=== PATIENT | male | born 1975 | race Caucasian/White ===

== ENCOUNTER 2025-03-19 13:20 | Emergency (ER) | payer MEDICAID, SELFPAY ==
[2025-03-19 13:23] VITALS: BP 105/73; PULSE 61; RESP 18; TEMP 36.6; O2SAT 95; BMI 26.6
--- NOTE | 2025-03-19 14:12 | ED.PSYCH ---
HPI - Psych General Chief Complaint: Psychiatric Problem/Disorder Stated Complaint: allergic reaction to medication Time Seen by Provider: 03/19/25 13:34 History of Present Illness HPI Narrative: This 49-year-old male comes in stating that he is having worsening insomnia with depression and anxiety symptoms. He states that he has been taking his regular medicines but did take Ambien 2 nights ago and states that he does not remember much what happened for about 18 hours after this. He has taken Ambien in the past. He states that he also has taken some herbal treatments that he suspects may have caused some of these symptoms. He states that he does feel like his depression and anxiety symptoms worsened and reports that last night he was thinking that he just wanted to end his life. He specifies that he would have taken all the pills he could to try to do so. He does state that he feels a bit unsafe and that regard. He denies using any street drugs or alcohol. Related Data Home Medications ?Medication ?Instructions ?Recorded ?Confirmed buprenorphine 300 mg/1.5 mL 300 mg subcut Q30D 03/19/25 03/19/25 solution,exten.rel.subcutaneous syringe (Sublocade) dextromethorphan IR 45 1 tab PO BID 03/19/25 03/19/25 mg-bupropion ER 105 mg biphasic tablet (Auvelity) gabapentin 800 mg tablet 400 mg PO TID 03/19/25 03/19/25 levothyroxine 100 mcg tablet 100 mcg PO DAILY 03/19/25 03/19/25 (Levo-T) propranolol 120 mg capsule,24 120 mg PO BID 03/19/25 03/19/25 hr,extended release (Inderal LA) quetiapine 100 mg tablet (Seroquel) 100 mg PO QHS 03/19/25 03/19/25 vilazodone 40 mg tablet (Viibryd) 40 mg PO DAILY 03/19/25 03/19/25 Previous Rx's ?Medication ?Instructions ?Recorded lorazepam 0.5 mg tablet (Ativan) 0.5 mg PO BID PRN #10 tabs 03/19/25 Allergies Allergy/AdvReac Type Severity Reaction Status Date / Time No Known Drug Allergies Allergy Verified 03/19/25 13:28 Review of Systems Status of ROS: Reports: 10 or more systems reviewed and unremarkable except as noted in History and below Narrative: Constitutional: No fevers, no weight gain or loss. Eyes: No discharge. No vision changes. HENT: No congestion, no sore throat, no ear pain. Cardiovascular: No chest pain, no palpitations. Respiratory: No shortness of breath, no wheezes, no cough. Gastrointestinal: No abdominal pain, no vomiting, no diarrhea. Genitourinary: No dysuria, no hematuria. Musculoskeletal: Normal range of motion. Skin: No rashes, no pruritis. Neurological: No dizziness, weakness, sensory change, speech change. Endo/Heme/Allergies: No bruising or bleeding. No polydipsia. Pysch: He reports increased anxiety and depression symptoms with insomnia. He admits to some suicidal thoughts. All other systems reviewed and are negative. PFSH PFS Social History Smoking Status: Former smoker Second hand tobacco smoke exposure: No How often do you have a drink containing alcohol: never AUDIT-C Alcohol total score: 0 Non-prescribed substance use: denies use service: No Exam Narrative: Exam Narrative: Constitutional: Well-developed, well-nourished, no acute distress. HEENT: Normocephalic, atraumatic. Neck: Normal range of motion. Nontender. Supple. Heart: Regular. No murmurs. Normal rate. Intact distal pulses. Lungs: Clear to auscultation. No chest discomfort. No wheezes, rhonchi, or rales. Abdomen: Normal bowel sounds. Nontender. No rebound tenderness. Genitalia: Deferred. Back: No midline tenderness. Normal range of motion. Extremities: Normal range of motion. No injury. Skin: Intact. No rash. Warm. No erythema or pallor. Neurologic: No altered sensation. No weakness. Alert and oriented. Psychiatric: No suicidality. No anxiety or depression. No insomnia. Nursing notes and vitals signs are reviewed. Const: Vital Signs, click to edit/add: Vital Signs - 24 hr 03/19/25 13:23 Temperature 97.8 F Pulse Rate [Pulse Oximeter] 61 Respiratory Rate 18 Blood Pressure [Ri ght Upper Arm] 105/73 Pulse Oximetry 95 Oxygen Delivery Me thod Room Air Course Vital Signs Vital signs: Initial Vital Signs Temperature 97.8 F 03/19/25 13:23 Temperature Source Temporal Artery Scan 03/19/25 13:23 Pulse Rate 61 03/19/25 13:23 Respiratory Rate 18 05/08/25 13:23 Blood Pressure 105/73 03/19/25 13:23 Blood Pressure Mean 83 03/19/25 13:23 Blood Pressure Position Sitting 03/19/25 13:23 Pulse Oximetry 95 03/19/25 13:23 Oxygen Delivery Method Room Air 03/19/25 13:23 Vital Signs Temperature 97.8 F 03/19/25 13:23 Pulse Rate 61 03/19/25 13:23 Respiratory Rate 18 03/19/25 13:23 Blood Pressure 105/73 03/19/25 13:23 Pulse Oximetry 95 03/19/25 13:23 Oxygen Delivery Method Room Air 03/19/25 13:23 Temperature 97.8 F 03/19/25 13:23 Pulse Rate 61 03/19/25 13:23 Respiratory Rate 18 03/19/25 13:23 Blood Pressure 105/73 03/19/25 13:23 Pulse Oximetry 95 03/19/25 13:23 Oxygen Delivery Method Room Air 03/19/25 13:23 MDM - Psych MDM Narrative Medical decision making narrative: This 49-year-old male comes in reporting increased symptoms of anxiety and insomnia recently. He states that he is continuing to take his prescribed medicines but also has taken some unregulated herbal type medicines that likely have cause some interaction. He states that he did have some thoughts of ending his life but he has never acted on such. I did [facility] and spoke with Levy from [facility]. it seems reasonable to discharge this patient. I did state that he could increase his Seroquel to 100 mg from 50 mg. He is agreeable to this plan. I did also provide a prescription for a few tablets of Ativan. He understands that this is not an ongoing plan and that we will not refill this medicine out of the emergency department. I advised him to follow-up with his primary physician which he states he is planning to do. Discharge Plan Discharge Clinical Impression: Depression, Acute anxiety Patient Disposition: Home, Self-Care Condition: Stable Additional Instructions: Okay to increase Seroquel from 50-100 mg at bedtime. It is best to avoid herbal treatments as these will interact with medications. Take Ativan as needed and directed for anxiety symptoms. Follow up with primary physician for ongoing assessment and management. Prescriptions: New lorazepam [Ativan] 0.5 mg tablet 0.5 mg PO BID PRNQty: 10 0RF No Action vilazodone [Viibryd] 40 mg tablet 40 mg PO DAILY Rx Instructions: must administer with a meal/food Auvelity 45-105 mg tablet, IR and ER, biphasic 1 tab PO BID Rx Instructions: administer at least 8 hours apart quetiapine [Seroquel] 100 mg tablet 100 mg PO QHS gabapentin 800 mg tablet 400 mg PO TID propranolol [Inderal LA] 120 mg capsule,extended release 24 hr 120 mg PO BID levothyroxine [Levo-T] 100 mcg tablet 100 mcg PO DAILY Sublocade 300 mg/1.5 mL solution, extended rel syringe 300 mg subcut Q30D Follow Up/Referrals: Pascale Felipe, AKIRA [Primary Care Provider] - Stand Alone Forms: [facility] Info Instructions
--- OUTSIDE RECORDS SUMMARY | 2025-03-19 20:41 | XMS_ITS | Clinical Summary ---
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 Active QUEtiapine XR (SEROquel XR) 50 MG 24 hour tablet Take 50 mg by mouth at bedtime. Do not crush or break. Active gabapentin (Neurontin) 600 MG tablet Take 600 mg by mouth three times a day. Active Dextromethorphan -buPROPion ER (Auvelity) 45-105 MG Tablet Extended Release Take by mouth 2 (two) times a day. Active Active Problems No known active problems Social History Tobacco Use Types Packs/Day Years Used Date Smoking Tobacco: Never Assessed EH IP Custom IPV Answer Date Recorded Do you feel UNSAFE in any of your personal relationships with your family members or any other acquaintances? No 2023 Sex and Gender Information Value Date Recorded Sex Assigned at Not on file Legal Sex Male 2:13 AM CDT Gender Identity Not on file Sexual Orientation Not on file Last Filed Vital Signs Vital Sign Reading Time Taken Comments Blood Pressure 106/82 07/10/2024 6:30 AM CDT Pulse 50 07/10/2024 6:30 AM CDT Temperature 36.4 C (97.5 F) 07/10/2024 5:35 AM CDT Respiratory Rate 14 07/10/2024 2:20 AM CDT Oxygen Saturation 97% 07/10/2024 6:30 AM CDT Inhaled Oxygen Concentration - - Weight - - Height - - Body Mass Index - - Plan of Treatment Health Maintenance Due Date Last Done Comments CT Colonography 1975 Cologuard 1975 Colonoscopy 1975 Colorectal Cancer Screening 1975 FIT/FOBT 1975 Sigmoidoscopy 1975 Hepatitis B Vaccine (Standin g Order) (1 of 3 - 19+ 3-dose series) 1994 PERTUSSIS (Standing Order) 1994 TETANUS (Standing Order) 1994 HPV Vaccine (Standing Order) Aged Out No longer eligible based on patient's age to complete this topic Pneumococcal/PCV20 Vaccine: Pediatrics (2-5 yrs) and At-Risk Patients (6-49 yrs) (Standing Order) Aged Out No longer eligible b ased on patient's age to complete this topic Insurance Care Teams Garage Door Hanger Relationship Specialty Start Date End Date Elsewhere, Pcp PCP - General 07/10/24
--- OUTSIDE RECORDS SUMMARY | 2025-03-19 20:42 | XMS_ITS ---
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 Role Phone Uriel Pérez Primary Care Provider [phone] REASON FOR VISIT Lab result Medications Medication SIG (Take, Route, Frequency, Duration) Notes Start Date End Date Status Vyvanse 30 MG Oral for 30 Days Not-Taking Liothyronine Sodium 5 MCG 1 tablet on an empty stomach Oral Once a day for 30 days Active Levothyroxine Sodium 100 MCG 1 tablet in the morning on an empty stomach Oral Once a day for 30 days Active QUEtiapine Fumarate 100 MG Oral for 15 Days Not-Taking Rizatriptan Benzoate 10 MG Oral for 30 Days Active Adderall XR 30 MG Oral for 30 Days Active Amphetamine-Dextroamphetam ine 30 MG Oral for 30 Days Active Suboxone 2-0.5 MG Sublingual for 30 Days Active Auvelity 45-105 MG Oral for 15 Days Active Encounters Encounter Location Date Provider Diagnosis [facility] [address] [place] [id number] 07/30/2024 Uriel Pérez Plan Of Treatment No Information Progress Notes * MARK WILLIDOB:1975 (49 yo M)Acc No.[id number]:07/30/2024 Video Visit Patient: Janet JIMENEZ YUMIKO Provider: Hima Pérez NP :1975 A ge:48 Y S ex:Male Date:07/30/2024 [address] [id number] Subjective: * Chief Complaints: * 1 . Lab result. * Medical History: * Medications: T aking Amphetamine-Dextroamphetamine 30 MG Tablet Oral , Taking Adderall XR 30 MG Capsule Extended Release 24 Hour Oral , Taking Suboxone 2-0.5 MG Film Sublingual , Taking Auvelity 45-105 MG Tablet Extended Release Oral , Taking Rizatriptan Benzoate 10 MG Tablet Oral , Taking Liothyronine Sodium 5 MCG Tablet 1 tablet on an empty stomach Oral Once a day , Taking Levothyroxine Sodium 100 MCG Tablet 1 tablet in the morning on an empty stomach Oral Once a day , Not-Taking/PRN Vyvanse 30 MG Capsule Oral , Not-Taking/PRN QUEtiapine Fumarate 100 MG Tablet Oral Objective: * Vitals: Assessment: Plan: * Treatment: * Billing Information: * Visit Code: * Procedure Codes: * Electronic signature of Ricardo Pérez APRN on 03/19/2025 at 08:41 PM CDT Sign off status: Pending * Provider: Hima Pérez NP Date: 0 07/30/2024 Generated for Maryann joshi/Walt/Brenda on: 0 03/19/2025 08:41 PM CDT
--- OUTSIDE RECORDS SUMMARY | 2025-03-19 20:42 | XMS_ITS | Clinical Summary ---
Author Organization [facility] Address [address] [place] [address] Care Team Providers Care Dye Jig Operator Name Role Phone Yeimy Felipe NP Primary Care Provid er Lv Carlos MD Unavailable [phone] Allergies No known active allergies Medications buprenorphine ER (SUBLOCADE) 300 mg/1.5 mL subcutaneous syringe Inject 100 mg subcutaneous every 4 weeks. 03/06/20 24 Active Auvelity 45-105 mg tablet 1 Tablet two times daily. 08/01/20 23 Active gabapentin (NEURONTIN) 600 mg tablet Take 600 mg by mouth three times daily. 05/19/20 23 Active polyethylene glycoL (MIRALAX) 17 gram/scoop powder Mix 1 scoop in liquid then take by mouth once daily. 07/09/20 24 Active propranoloL (INDERAL) 40 mg tablet Take 40 mg by mouth two times daily. 06/09/20 24 Active tiZANidine (ZANAFLEX) 4 mg tablet Take 4 mg by mouth every 8 hours if needed for Muscle Spasm. 05/19/20 24 Active QUEtiapine (SEROQUEL) 50 mg tablet Take 50 mg by mouth at bedtime. 05/11/20 24 Active vilazodone 20 mg tablet Take 20 mg by mouth once daily in the morning. 07/07/20 24 Active SUMAtriptan 100 mg tabletIndication s:Migraine syndrome Take 1 Tablet (100 mg) by mouth 2 times daily if needed for Migraine or Headache. 30 Tablet 5 01/29/20 25 Active levothyroxine 100 mcg tabletIndication s:Hypothyroidism (acquired) Take 1 Tablet (100 mcg) by mouth before breakfast. 90 Tablet 1 01/29/20 25 Active testosterone 20.25 mg/1.25 gram (1.62 %) glpm transdermal gelIndications:H ypogonadism in male Apply 2 pumps (40.5 mg) on dry, clean, hairless skin once daily in the morning. To clean, dry, intact skin of the shoulders and upper arms. Do NOT apply to any other parts of the body. 1 Each 2 02/28/20 25 Active NIFEdipine 30 mg extended-release tabletIndication s:Primary Raynaud's phenomenon Take 1 Tablet (30 mg) by mouth once daily before a meal. 90 Tablet 03/04/20 25 Active terbinafine HCL 250 mg tabletIndication s:Toenail fungus Take 1 Tablet (250 mg) by mouth once daily. 90 Tablet 03/04/20 25 Active ferrous sulfate 325 mg delayed release tabletIndication s:Iron deficiency anemia, unspecified iron deficiency anemia type Take 1 Tablet (325 mg) by mouth once daily with a meal. 90 Tablet 3 03/05/20 25 Active amLODIPine 5 mg tabletIndication s:Primary Raynaud's phenomenon Take 1 Tablet (5 mg) by mouth once daily. 90 Tablet 3 01/29/20 25 025 Discontin ued(*Med complete/ Regimen complete/ Level of care change) terbinafine HCL 250 mg tabletIndication s:Toenail fungus Take 1 Tablet (250 mg) by mouth once daily. 30 Tablet 01/29/20 25 025 Discontin ued(Reord er (E-cancel not sent)) Active Problems Problem Noted Date Diagnosed Date Primary Raynaud's phenomenon 01/28/2025 Toenail fungus 01/28/2025 Low serum testosterone 01/28/2025 Migraine syndrome 01/28/2025 Chemical dependency 11/27/2024 Hypotension 07/10/2024 Bradycardia 07/10/2024 Benign prostatic hyperplasia with nocturia 06/17 Hypothyroidism 05/01/2024 Hx of opioid abuse 05/01/2024 Moderate episode of recurrent major depressive d isorder 05/01/2024 Resolved Problems Problem Noted Date Diagnosed Date Resolved Date Acute respiratory failure with hypoxia 11/27/2024 03/04/2025 Encounters Date Type Department Care Team Description 03/18/2025 Telephone [facility] [address] [place] [address] Yeimy Felipe NP Form (FAXED REFERRALS) 03/04/2025 11:10 AM CDT Office Visit [facility] [address] [place] [address] Yeimy Felipe NP Medication Management; Lab 03/04/2025 Travel 02/27/[address] [facility] [address] [address] Lv Carlos MD Prior Authorization (testosterone 20.25 mg/1.25 gram (1.62 %) glpm transdermal gel Approved February 28, 2025 to February 28, 2026) 02/27/[address] [facility] [address] [address] Lv Carlos MD <No scans attached> 02/27/[address] [facility] [address] [address] Lv Carlos MD <No scans attached> 02/23/2025 3:30 PM CDT Office Visit [facility] [address] [address] Lv Carlos MD Follow Up (Low testosterone ) 02/23/2025 11:00 AM CDT Orders [facility] [address] [address] Lab 02/22/2025 Travel 02/09/2025 1:25 PM CDT Office Visit [facility] [address] [address] Lv Carlos MD Consult (Low testosterone ) 02/09/2025 Travel 02/03/2025 Telephone [facility] [address] [address] [place] [address] Yeimy Fleipe NP FYI 01/28/2025 1:40 PM CDT Office Visit [facility] [address] [address] [place] [address] Yeimy Felipe NP Concerns (cold toes/ 2 at a time, Discolored fingers with the cold . 1 year prior /Toe fungus- 2 + years/Would like labs checked - on thyroid medication /) 01/28/2025 Travel from Last 3 Months Immunizations Immunization Administration Dates Next Due Tdap 04/16/2023 Family History Medical History Relation Name Comments GI Disease Brother Hypothyroidism Father No Known Problems Maternal Grandfather No Known Problems Maternal Grandmother Anxiety disorder Mother Depression Mother Hypothyroidism Mother No Known Problems Paternal Grandfather No Known Problems Paternal Grandmother No Known Problems Sister 1 No Known Problems Sister 2 Cancer No Family History Diabetes No Family History Heart Disease No Family History Relation Name Status Comments Brother Alive Father Maternal Grandfather Maternal Grandmother Mother Paternal Grandfather Paternal Grandmother Sister 1 Alive Sister 2 Alive Social History Tobacco Use Types Packs/Day Years Used Date Smoking Tobacco: Former Cigarettes 0.5 10 1 998 - 2007 Smokeless Tobacco: Former Tobacco Cessation:Counseling Given: Not Answered Alcohol Use Standard Drinks/Week Comments Not Currently 0 (1 standard drink = 0.6 oz pur e alcohol) PHQ-2 Answer Date Recorded PHQ-2 TOTAL SCORE 4 08/06/2024 Social Connections Answer Date Recorded Do you often feel lonely or isolated from those around you? 0 07/10/2024 Financial Resource Strain Answer Date R ecorded Difficulty of Paying Living Expenses 3 07/10/2024 Difficulty of Paying Living Expenses Not on file 07/10/2024 Food Insecurity Answer Date Recorded Do you worry your food will run out before you are able to buy more? 1 07/10/2024 Transportation Needs Answer Date Record ed Does lack of transportation keep you from medica l appointments? 1 07/10/2024 Does lack of transportation keep you from work, meetings or getting things that you need? 1 07/10/2024 Housing Stability Answer Date Recorded What is your housing situation today? 1 07/10/2024 Interpersonal Safety Answer Date Record ed Are you being hit, kicked, p ushed or yelled at (see row info)? No 07/10/2024 Interpersonal Safety Abuse 12 - 18 Not on file 07/10/2024 Interpersonal Safety Ambulatory Vulnerability No t on file 07/10/2024 Utilities Answer Date Recorded Do you have trouble paying f or utilities (for example, heat, electricity, water, phone)? 1 07/10/2024 Sex and Gender Information Value Date Recorded Sex Assigned at Not on file Legal Sex Male 11:27 AM CDT Gender Identity Not on file Sexual Orientation Not on file Obstetrics History Last Filed Vital Signs Vital Sign Reading Time Taken Comments Blood Pressure 114/72 03/04/2025 11:15 AM CDT Pulse 64 03/04/2025 11:15 AM CDT Temperature 36.3 C (97.4 F) 07/10/2024 11:00 AM CDT Respiratory Rate 18 07/10/2024 11:00 AM CDT Oxygen Saturation 98% 02/23/2025 3:36 PM CDT Inhaled Oxygen Concentration - - Weight 82.8 kg (182 lb 8 oz) 03/04/2025 11:15 AM CDT Height 169.5 cm (5' 6.73) 08/06/2024 11:23 AM C DT Body Mass Index 28.81 08/06/2024 11:23 AM CDT Plan of Treatment Upcoming Encounters Date Type Department Care Team (Late st Contact Info) Description 04/22/2025 1:00 PM CDT Office Visit [facility] [address] [address] Yeimy Felipe, TINA [address] [address] Health Maintenance Due Date Last Done Comments HIV for age 15-65 1990 Hepatitis C screening for ag e 18-79 1993 Colonoscopy through age 75 2020 COVID-19 vaccine series ( - 2023- season) 2024 Influenza Vaccine (Season Ended) 2025 BMI (ht and wt on same day) for age 18+ 08/06/2025 08/06/2024, 06/01/2022 Depression screening for age 12+ 08/06/2025 08/06/2024 Lipids for age 45-75 01/28/2030 01/28/2025 Tetanus booster 04/16/2033 04/16/2023 Tdap Completed 04/16/2023 Pneumococcal series for age 6-49 Aged Out No longer eligible b ased on patient's age to complete this topic Procedures Procedure Name Priority Date/Time Associated Diagnosis Comments FERRITIN Routine 03/04/2025 11:34 AM CDT Iron deficiency anemia, unspecified iron deficiency anemia type COMP METABOLIC PANEL Routine 03/04/2025 11:34 AM CDT Primary Raynaud's phenomenon ADRENOCORTICOTROPIC HORMONE (ACTH) PLASMA Routine 02/23/2025 10:59 AM CDT Low serum testosterone ESTRADIOL Routine 02/23/2025 10:59 AM CDT Low serum testosterone DHEA-SULFATE (DHEA-S) Routine 02/23/2025 10:59 AM CDT Low serum testosterone FSH Routine 02/23/2025 10:59 AM CDT Low serum testosterone HEMATOCRIT Routine 02/23/2025 10:59 AM CDT Low serum testosterone HEMOGLOBIN Routine 02/23/2025 10:59 AM CDT Low serum testosterone INSULIN-LIKE GROWTH FACTOR 1 (IGF-1) Routine 02/23/2025 10:59 AM CDT Low serum testosterone LUTEINIZING HORMONE Routine 02/23/2025 1 0:59 AM CDT Low serum testosterone PROLACTIN Routine 02/23/2025 10:59 AM CDT Low serum testosterone TESTOSTERONE BIOAVAILABLE & FREE Routine 02/23/2025 10:59 AM CDT Low serum testosterone PSA TOTAL Routine 02/23/2025 10:59 AM CDT Low serum testosterone CORTISOL TOTAL Routine 02/23/2025 10:59 AM CDT Low serum testosterone TSH WITH REFLEX Routine 01/28/2025 2:22 PM CDT Hypothyroidism, unspecified type LIPID PANEL W REFLEX MEASURED LDL Routine 01/28/2025 2:22 PM CDT Screening cholesterol level COMP METABOLIC PANEL Routine 01/28/2025 2:22 PM CDT Primary Raynaud's phenomenon Hypothyroidism, unspecified type TESTOSTERONE,TOTAL Routine 01/28/2025 2: 22 PM CDT Low serum testosterone from Last 3 Months Results * (ABNORMAL) FERRITIN (03/04/2025 11:34 AM CDT) FERRITIN 23(L) 38 - 380 ng/mL [facility] Blood BLOOD SPECIMEN / Unknown 03/04/2025 11:34 AM CDT 03/04/2025 11:35 AM CDT Yeimy Felipe NP CHEMISTRY Maisha l Result [facility] [address] [place] [address], [facility] [address] [place] [address] * COMP METABOLIC PANEL (03/04/2025 11:34 AM CDT) Only the most recent of2 resultswithin the time period is included. GLUCOSE 91 65 - 99 mg/dL [facility]Angel[facility] Comment: Fasting reference interval UREA NITROGEN (BUN) 13 7 - 25 mg/dL [facility]ve [facility]eves CREATININE 0.93 0.60 - 1.29 mg/dL [facility] ste[facility] EGFR 101 > OR = 60 mL/min/1. 73m2 [facility] BUN/CREATININE RATIO SEE NOTE: 6 - 22 (calc) [facility] Comment: Not Reported: BUN and Creatinine are within reference range. SODIUM 142 135 - 146 mmol/L [facility] POTASSIUM 4.7 3.5 - 5.3 mmol/L [facility] CHLORIDE 103 98 - 110 mmol/L [facility] CARBON DIOXIDE 30 20 - 32 mmol/L [facility] CALCIUM 9.8 8.6 - 10.3 mg/dL [facility] PROTEIN, TOTAL 6.9 6.1 - 8.1 g/dL [facility] ALBUMIN 4.3 3.6 - 5.1 g/dL [facility] GLOBULIN 2.6 1.9 - 3.7 g/dL (calc) [facility] ALBUMIN/GLOBULIN RATIO 1.7 1.0 - 2.5 (calc) [facility] BILIRUBIN, TOTAL 0.3 0.2 - 1.2 mg/dL [facility] ALKALINE PHOSPHATASE 75 36 - 130 U/L [facility] AST 21 10 - 40 U/L [facility] ALT 27 9 - 46 U/L [facility] Blood BLOOD SPECIMEN / Unknown 03/04/2025 11:34 AM CDT 03/04/2025 11:35 AM CDT Yeimy Felipe NP CHEMISTRY Maisha l Result [facility] [address] [place] [address], [facility] [address] [place] [address] * CORTISOL TOTAL (02/23/2025 10:59 AM CDT) [facility] CORTISOL, TOTAL 17.4 mcg/dL [facility]ian Reeves Comment: Reference Range: For 8 a.m.(7-9 a.m.) Specimen: 4.0-22.0 Reference Range: For 4 p.m.(3-5 p.m.) Specimen: 3.0-17.0 * Please interpret above results accordingly * Blood BLOOD SPECIMEN / Unknown 02/23/2025 10:59 AM CDT 02/23/2025 10:59 AM CDT Lv Carlos MD CHEMISTRY Final Result [facility] [address] [place] [address], [facility] [address] [place] [address] * (ABNORMAL) TESTOSTERONE BIOAVAILABLE & FREE (02/23/2025 10:59 AM CDT) ALBUMIN 4.6 3.6 - 5.1 g/dL [facility] SEX HORMONE BINDING GLOBULIN 55(H) 10 - 50 nmol/L [facility] TESTOSTERONE, FREE 25.7(L) 46.0 - 224.0 pg/mL [facility] TESTOSTERONE,BIOA VAILABLE 54.1(L) 110.0 - 575.0 ng/dL [facility] TESTOSTERONE, TOTAL, MS 314 250 - 1,100 ng/dL [facility] Comment: Men with clinically significant hypogonadal symptoms and testosterone values repeatedly in the range of the 200-300 ng/dL or less, may benefit from testosterone treatment after adequate risk and benefits counseling. For additional information, please refer to https://education.Point.[employer])/faq/NUD205 (This link is being provided for informational/educational purposes only.) (Note) This test was developed and its analytical performance characteristics have been determined by [facility]. It has not been cleared or approved by the FDA. This assay has been validated pursuant to the CLIA regulations and is used for clinical purposes. [facility] [address] [address],[address] [facility] [address] Salma Brito MD, PhD Blood BLOOD SPECIMEN / Unknown 02/23/2025 10:59 AM CDT 02/23/2025 10:59 AM CDT Lv Carlos MD SEND OUTS Final Result [facility] [address] [facility] [address] [place] [address], [facility] [address] [facility] [address], [address] [place] [address] * INSULIN-LIKE GROWTH FACTOR 1 (IGF-1) (02/23/2025 10:59 AM CDT) Pathologist [facility] IGF 1, LC/MS 105 52 - 328 ng/mL [facility], Z SCORE (MALE) -0.6 -2.0 - 2.0 SD [facility], Comment: This test was developed and its analytical performance characteristics have been determined by [facility]. It has not been cleared or approved by the FDA. This assay has been validated pursuant to the CLIA regulations and is used for clinical purposes. Blood BLOOD SPECIMEN / Unknown 02/23/2025 10:59 AM CDT 02/23/2025 10:59 AM CDT Lv Carlos MD SEND OUTS Final Result Performing Organization Address City/[facility]/ZIP Co de Phone Number [facility] [address] [place] [address], [facility], [address] [place] [address] * ADRENOCORTICOTROPIC HORMONE (ACTH) PLASMA (02/23/2025 10:59 AM CDT) Pathologist [facility] ACTH, PLASMA 24 6 - 50 pg/mL [facility], Comment: Reference range applies only to the specimens collected between 7am-10am. Blood BLOOD SPECIMEN / Unknown 02/23/2025 10:59 AM CDT 02/23/2025 10:59 AM CDT us Lv Carlos MD SEND OUTS Final Result Performing Organization Address City/[facility]/ZIP Co de Phone Number [facility] [address] [place] [address], [facility], [address] [place] [address] * HEMOGLOBIN (02/23/2025 10:59 AM CDT) HEMOGLOBIN 14.1 13.2 - 17.1 g/dL [facility] ( Blood BLOOD SPECIMEN / Unknown 02/23/2025 10:59 AM CDT 02/23/2025 10:59 AM CDT us Lv Carlos MD HEMATOLOGY Final Result Performing Organization Address City/[facility]/ZIP Co de Phone Number [facility] [address] [place] [address], [facility] ( [address] [place] [address] * HEMATOCRIT (02/23/2025 10:59 AM CDT) [facility] HEMATOCRIT 42.0 38.5 - 50.0 % [facility] ( Blood BLOOD SPECIMEN / Unknown 02/23/2025 10:59 AM CDT 02/23/2025 10:59 AM CDT us Lv Carlos MD HEMATOLOGY Final Result Performing Organization Address City/[facility]/ZIP Co de Phone Number [facility] [address] [place] [address], [facility] ( [address] [place] [address] * LUTEINIZING HORMONE (02/23/2025 10:59 AM CDT) LH 1.5 1.5 - 9.3 mIU/mL [facility] Blood BLOOD SPECIMEN / Unknown 02/23/2025 10:59 AM CDT 02/23/2025 10:59 AM CDT Lv Carlos MD CHEMISTRY Final Result Performing Organization Address City/[facility]/ZIP Co de Phone Number [facility] [address] [place] [address], [place] [phone] [facility] [address] [facility] [place] [address] * PSA TOTAL (02/23/2025 10:59 AM CDT) [facility] PSA, TOTAL 0.27 < OR = 4.00 ng/mL [facility] Comment: The total PSA value from this assay system is standardized against the WHO standard. The test result will be approximately 20% lower when compared to the equimolar-standardized total PSA (Xin Leisa). Comparison of serial PSA results should be interpreted with this fact in mind. This test was performed using the Siemens chemiluminescent method. Values obtained from different assay methods cannot be used interchangeably. PSA levels, regardless of value, should not be interpreted as absolute evidence of the presence or absence of disease. Blood BLOOD SPECIMEN / Unknown 02/23/2025 10:59 AM CDT 02/23/2025 10:59 AM CDT us Lv Carlos MD CHEMISTRY Final Result [facility] [address] [place] [address], [place] [phone] [facility] [address] [facility] [place] [address] * PROLACTIN (02/23/2025 10:59 AM CDT) [facility] PROLACTIN 3.8 2.0 - 18.0 ng/mL [facility] Blood BLOOD SPECIMEN / Unknown 02/23/2025 10:59 AM CDT 02/23/2025 10:59 AM CDT us Lv Carlos MD SEND OUTS Final Result [facility] [address] [place] [address], [place] [phone] [facility] [address] [place] [address] * FSH (02/23/2025 10:59 AM CDT) Pathologist [facility] FSH 5.7 1.4 - 12.8 mIU/mL [facility] Blood BLOOD SPECIMEN / Unknown 02/23/2025 10:59 AM CDT 02/23/2025 10:59 AM CDT Lv Carlos MD CHEMISTRY Final Result Performing Organization Address City/[facility] Co de Phone Number [facility] [address] [place] [address], [place] [phone] [facility] [address] [place] [address] * ESTRADIOL (02/23/2025 10:59 AM CDT) Pathologist [facility] ESTRADIOL 22 < OR = 39 pg/mL [facility]Angelina wilson [facility] Comment: Reference range established on post-pubertal patient population. No pre-pubertal reference range established using this assay. For any patients for whom low Estradiol levels are anticipated (e.g. males, pre-pubertal children and hypogonadal/post-menopausal females), the [facility] Estradiol, Ultrasensitive, LCMSMS assay is recommended (order code 60357). Please note: patients being treated with the drug fulvestrant (Faslodex(R)) have demonstrated significant interference in immunoassay methods for estradiol measurement. The cross reactivity could lead to falsely elevated estradiol test results leading to an inappropriate clinical assessment of estrogen status. [facility] order code [id number], Ultrasensitive LC/MS/MS demonstrates negligible cross reactivity with fulvestrant. Blood BLOOD SPECIMEN / Unknown 02/23/2025 10:59 AM CDT 02/23/2025 10:59 AM CDT Lv Carlos MD SEND OUTS Final Result [facility] [address] [place] [address], [facility] [address] [place] [address] * DHEA-SULFATE (DHEA-S) (02/23/2025 10:59 AM CDT) DHEA SULFATE 135 61 - 442 mcg/dL [facility] willian Villaltae Blood BLOOD SPECIMEN / Unknown 02/23/2025 10:59 AM CDT 02/23/2025 10:59 AM CDT Lv Carlos MD SEND OUTS Final Result Performing Organization Address [facility]/ZIP Co de Phone Number [facility] [address] [place] [address], [facility] [address] [place] [address] * TSH WITH REFLEX (01/28/2025 2:22 PM CDT) TSH W/REFLEX TO FT4 1.22 0.40 - 4.50 mIU/L [facility] willian Reeves Blood BLOOD SPECIMEN / Unknown 01/28/2025 2:22 PM CDT 01/28/2025 2:23 PM CDT Yeimy Felipe [employer] [employer] CHEMISTRY Maisha l Result [facility] [address] [place] [address], [facility] [address] [facility] [place] [address] * (ABNORMAL) LIPID PANEL W REFLEX MEASURED LDL (01/28/2025 2:22 PM CDT) Pathologist [facility] CHOLESTEROL, TOTAL 190 <200 mg/dL [facility] HDL CHOLESTEROL 50 > OR = 40 mg/dL [facility] TRIGLYCERIDES 172(H) <150 mg/dL [facility] LDL-CHOLESTEROL 111(H) mg/dL (calc) [facility] Comment: Reference range: <100 Desirable range <100 mg/dL for primary prevention; <70 mg/dL for patients with CHD or diabetic patients with > or = 2 CHD risk factors. LDL-C is now calculated using the Christine calculation, which is a validated novel method providing better accuracy than the Friedewald equation in the estimation of LDL-C. Frankie LIM et al. SUSY. 2013;310(19): 8628-2237 (http://education.GettingHired/faq/KRU896) CHOL/HDLC RATIO 3.8 <5.0 (calc) [facility]ian [facility] NON HDL CHOLESTEROL 140(H) <130 mg/dL (calc) [facility] Comment: For patients with diabetes plus 1 major ASCVD risk factor, treating to a non-HDL-C goal of <100 mg/dL (LDL-C of <70 mg/dL) is considered a therapeutic option. Blood BLOOD SPECIMEN / Unknown 01/28/2025 2:22 PM CDT 01/28/2025 2:23 PM CDT us Yeimy Felipe NP CHEMISTRY Maisha l Result [facility] [address] [place] [address], [facility] [address] [place] [address] * (ABNORMAL) TESTOSTERONE,TOTAL (01/28/2025 2:22 PM CDT) TESTOSTERONE, TOTAL, MS 238(L) 250 - 1,100 ng/dL [facility] Comment: Men with clinically significant hypogonadal symptoms and testosterone values repeatedly in the range of the 200-300 ng/dL or less, may benefit from testosterone treatment after adequate risk and benefits counseling. For additional information, please refer to https://[employer] Devices.HipLink/faq/TotalTestosteroneLCMSMS (This link is being provided for informational/educational purposes only.) (Note) This test was developed and its analytical performance characteristics have been determined by [facility]. It has not been cleared or approved by the FDA. This assay has been validated pursuant to the CLIA regulations and is used for clinical purposes. [facility] [address] [address],[address] [place] [address] Salma Brito MD, PhD Blood BLOOD SPECIMEN / Unknown 01/28/2025 2:22 PM CDT 01/28/2025 2:23 PM CDT Yeimy Felipe NP CHEMISTRY Maisha l Result [facility] [address] [place] [address], [facility] [address] [address], [address] [place] [phone] from Last 3 Months Insurance [facility] Advance Directives * Full Code (Latest Code Status on File) Date Activated Date Inactivated Comments 07/10/2024 8:00 AM 07/10/2024 5:07 PM Question Answer Comments Code Status Discussion: Reviewed Preferences Care Teams Dye Jig Operator Relationship Specialty Start Date End Date Yeimy Felipe NP [address] [facility] [address] [place] [address] PCP - General Nurse Practitioner - Family 08/06/24 [place] [address] [place] [address] Endocrinology Endocrinology 02/09/25
--- OUTSIDE RECORDS SUMMARY | 2025-03-19 20:42 | XMS_ITS | Referral Summary ---
Author Organization [facility] Address [address] [place] [address] Care Team Providers Care Supervisor Litharge Name Role Phone Mikal Angelo DO Primary Care Provid er Encounters Date Type Department Care Team Description 12/22/2024 Patient Message [facility] [address] [place] [address] Silva Bonilla, PHYSIOGNOMIST,ADULT DAYCARE COORDINATOR Subj: Mood follow up from Last 3 Months Allergies No known active allergies Medications liothyronine sodium (CYTOMEL) 5 mcg oral Tablet Take 1 tablet by mouth on an empty stomach Once a day* 4 Active NARCAN 4 mg/actuation nasal [place], Non-Aerosol SPRAY 1 SQUIRT IN THE NOSTRILS DIRECTED; USE 1 SPRAY NEEDED FOR OVERDOSE; REPEAT IN 2-3 MINUTES AND CALL 9-1-1 IF USED* 4 Active SUMAtriptan succinate (IMITREX) 100 mg oral Tablet Take 1 Tablet (100 mg) by mouth. Active VITAMIN B-1 (MONONITRATE) 100 mg oral Tablet 4 Active VIIBRYD 40 mg oral Tablet 1 Active AUVELITY 45-105 mg oral tablet, IR & ER, biphasic 3 Active SUBOXONE 4-1 mg sublingual Film 4 Active buprenorphine (SUBLOCADE) 300 mg/1.5 mL subcutaneous solution, extended rel syringe 4 Active gabapentin (NEURONTIN) 800 mg oral TabletIndications :MANJULA (generalized anxiety disorder),Moderat e episode of recurrent major depressive disorder (HCC),Other chronic pain Take 1 Tablet (800 mg) by mouth in the morning and 1 Tablet (800 mg) at noon and 1 Tablet (800 mg) before bedtime. 90 Tablet 1 4 Active SUMAtriptan succinate (IMITREX) 100 mg oral TabletIndications :Chronic migraine with aura without status migrainosus, not intractable Take 1 tablet at onset of headache; may repeat in 2 hours one if needed. Max 2 tabs in 24 hours 9 Tablet 3 4 Active levothyroxine (LEVOXYL,SYNTHROI D) 100 mcg oral TabletIndications :Hypothyroidism, unspecified type Take 1 Tablet (100 mcg) by mouth daily at specific time. 90 Tablet 1 4 Active QUEtiapine (SEROQUEL) 50 mg oral TabletIndications :Moderate episode of recurrent major depressive disorder (HCC) Take 1 Tablet (50 mg) by mouth at bedtime. 7 Tablet 4 Active propranoloL (INDERAL) 40 mg oral TabletIndications :MANJULA (generalized anxiety disorder) Take 1 Tablet (40 mg) by mouth in the morning and 1 Tablet (40 mg) in the evening. 60 Tablet 3 4 Active terazosin (HYTRIN) 1 mg oral CapsuleIndication s:Benign prostatic hyperplasia with nocturia Take 1 Capsule (1 mg) by mouth at bedtime. 90 Capsule 1 4 Active vilazodone (VIIBRYD) 20 mg oral TabletIndications :Moderate episode of recurrent major depressive disorder (HCC),MANJULA (generalized anxiety disorder) Take 1 Tablet (20 mg) by mouth in the morning. 30 Tablet 4 Active Active Problems Problem Noted Date Diagnosed Date Benign prostatic hyperplasia with nocturia 06/17 Other chronic pain 06/17/2024 Hx of opioid abuse 05/01/2024 Hypothyroidism 05/01/2024 Moderate episode of recurrent major depressive d isorder 05/01/2024 Immunizations Immunization Administration Dates Next Due Tdap Vaccine, IM, (Adacel)(Boostrix) 04/16/2023 Social History Tobacco Use Types Packs/Day Years Used Date Smoking Tobacco: Former Cigarettes Smokeless Tobacco: Never Tobacco Cessation:Counseling Given: Not Answered B1300 Health Literacy Answer Date Recor ded How often do you need to hav e someone help you when you read instructions, pamphlets, or other written material from your doctor or pharmacy? Patient declines to respond 05/01/2024 [facility] Utilities Answer Date Recorded In the past 12 months has e electric, gas, oil, or water company threatened to shut off services in your home? Patient declined 05/01/2024 Humiliation, Afraid, Rape, and Kick questionnair e Answer Date Recorded Within the last year, have y ou been afraid of your partner or ex-partner? No 05/01/2024 Within the last year, have y ou been humiliated or emotionally abused in other ways by your partner or ex-partner? No Within the last year, have y ou been kicked, hit, slapped, or otherwise physically hurt by your partner or ex-partner? No 05/01/2024 Within the last year, have y ou been raped or forced to have any kind of sexual activity by your partner or ex-partner? No 05/01/2024 Social Connection and Isolation Panel [NHANES] A nswer Date Recorded In a typical week, how many times do you talk on the phone with family, friends, or neighbors? Twice a week 05/01/20 How often do you get togethe r with friends or relatives? Twice a week 05/01/2024 How often do you attend chur ch or sabianist services? 1 to 4 times per year 05/01/2024 Do you belong to any clubs o r organizations such as religious groups, unions, fraternal or athletic groups, or school groups? No 05/01/2024 How often do you attend meet ings of the clubs or organizations you belong to? Never 05/01/2024 Are you , , di vorced, , never , or living with a partner? Never 05/01/2024 AUDIT-C Answer Date Recorded Q1: How often do you have a drink containing alcohol? Never 05/01/2024 Q2: How many drinks containi ng alcohol do you have on a typical day when you are drinking? Patient does not drink Q3: How often do you have si x or more drinks on one occasion? Never 05/01/2024 Overall Financial Resource Strain (CARDIA) Answe r Date Recorded How hard is it for you to pa y for the very basics like food, housing, medical care, and heating? Somewhat hard 05/01/2024 [facility] [place] of Occupat ional Health - Occupational Stress Questionnaire Answer Date Recorded Do you feel stress - tense, restless, nervous, or anxious, or unable to sleep at night because your mind is troubled all the time - these days? To some extent 05/01/2024 Exercise Vital Sign Answer Date Recorde d On average, how many days pe r week do you engage in moderate to strenuous exercise (like a brisk walk)? 5 days 05/01/2024 On average, how many minutes do you engage in exercise at this level? 30 min 05/01/2024 Hunger Vital Sign Answer Date Recorded Within the past 12 months, y ou worried that your food would run out before you got the money to buy more. Sometimes true Within the past 12 months, t he food you bought just didn't last and you didn't have money to get more. Sometimes true Housing Stability Vital Sign Answer Sanjay e Recorded In the last 12 months, was t here a time when you were not able to pay the mortgage or rent on time? Yes 05/01/20 24 In the past 12 months, how m any times have you moved where you were living? 3 05/01/2024 At any time in the past 12 m [facility], were you homeless or living in a alf (including now)? Patient declined 05/01/2024 Housing Stability Answer Date Recorded In the last 12 months, was t here a time when you were not able to pay the mortgage or rent on time? Yes 05/01/2024 Number of Places Lived in the Last Year Not on f ile 05/01/2024 Number of Places Lived in the Last Year (Outpati ent) Not on file 05/01/2024 Number of Places Lived in the Last Year (Inpatie nt) Not on file 05/01/2024 Unstable Housing in the Last Year Not on file 05/01/2024 Depression (PHQ-9) Answer Date Recorded Last PHQ-9 Score 8 06/05/2024 Thoughts of self harm Not at all 06/05/2024 Pediatric Housing Stability Answer Date Recorded At any time in the past 12 m [facility], were you homeless or living in a alf (including now)? Patient declined 05/01/2024 In the past 12 months, how m any times have you moved where you were living? 3 05/01/2024 Housing Condition Worry Not on file 05/01/20 24 Intimate Partner Violence Answer Date R ecorded Are you in a relationship wh ere you are physically hurt, threatened and/or made to feel afraid? No 05/01/2024 Transportation Needs Answer Date Record ed In the past 12 months, has l ack of transportation kept you from medical appointments, meetings, work, or from getting medicines or things needed for daily living? Patient declined 0 05/01/2024 Caregiver Education and Work Answer Sanjay e Recorded High School Degree Not on file 05/01/2024 How often do you need to hav e someone help you when you read instructions, pamphlets, or other written material from your doctor or pharmacy? Patient declines to respond 05/01/2024 Sex and Gender Information Value Date Recorded Sex Assigned at Not on file Legal Sex Male 12:44 PM CDT Gender Identity Male 05/01/2024 6:53 AM CDT Sexual Orientation Choose not to disclose 2023 6:53 AM CDT Last Filed Vital Signs Vital Sign Reading Time Taken Comments Blood Pressure 106/78 06/11/2024 9:38 AM CDT Pulse 61 06/11/2024 9:38 AM CDT Temperature 37.2 C (99 F) 05/01/2024 2:01 PM CDT Respiratory Rate 18 07/13/2023 2:24 PM CDT Oxygen Saturation 96% 06/11/2024 9:38 AM CDT Inhaled Oxygen Concentration - - Weight 74.6 kg (164 lb 6.4 oz) 06/11/2024 9:38 A M CDT Height 170 cm (5' 6.93) 06/11/2024 9:38 AM CDT Body Mass Index 25.8 06/11/2024 9:38 AM CDT Plan of Treatment Not on file Procedures Procedure Name Priority Date/Time Associated Diagnosis Comments HIV-1 AND HIV-2 AG AND AB Routine 05/01/2024 2:53 PM CDT Encounter for screening for HIV HEPATITIS C AB Routine 05/01/2024 2:53 PM CDT Encounter for hepatitis C screening test for low risk patient LIPID PANEL Routine 05/01/2024 2:53 PM CDT Lipid screening from Last 3 Months or Most Recently Relevant to Health Maintenance Results * HEPATITIS C AB (05/01/2024 2:53 PM CDT) Pathologist [facility] HCV Ab Nonreactive Nonreactive 05/01/2024 7:59 PM CDT [facility] Comment:Interpretation: Anti bodies to HCV were not detected; does not exclude the possibility of exposure to HCV. Blood VENOUS BLOOD / Unknown Venipuncture / Unknown 05/01/2024 2:53 PM CDT 05/01/2024 2:53 PM CDT Mikal Simpsoni DO LAB SEROLOGY ORDERAB LES Final Result Performing Organization Address City/[facility]/ZIP Co de Phone Number [facility] [address] [place] [address], [place] [phone] * HIV-1 AND HIV-2 AG AND AB (05/01/2024 2:53 PM CDT) [facility] HIV 1/2 Ab/Ag Nonreactive Nonreactive 7:56 PM CDT [facility] Blood VENOUS BLOOD / Unknown Venipuncture / Unknown 05/01/2024 2:53 PM CDT 05/01/2024 2:53 PM CDT Mikal Calderonouni DO LAB SEROLOGY ORDERAB LES Final Result Performing Organization Address City/[facility]/ZIP Co de Phone Number [facility] [address] [place] [address], [place] [phone] * LIPID PANEL (05/01/2024 2:53 PM CDT) [facility] Cholesterol 170 <200 mg/dL 05/01/2024 7:43 PM CDT [facility] Triglycerides 58 30 - 150 mg/dL 05/01/2024 7:43 PM CDT [facility] Cholesterol, LDL (Calculated) 101 0 - 159 mg/dL 05/01/2024 7:43 PM CDT [facility] Cholesterol, HDL 57 >40 mg/dL 05/01/20 7:43 PM CDT [facility] Cholesterol, vLDL 12 mg/dL 024 7:43 PM CDT [facility] Fasting Status N/A 05/01/2024 7:43 PM CDT [facility] Blood VENOUS BLOOD / Unknown Venipuncture / Unknown 05/01/2024 2:53 PM CDT 05/01/2024 2:53 PM CDT Mikal Angelo DO LAB CHEMISTRY ORDERA BLES Final Result [facility] [address] [place] [address], from Last 3 Months or Most Recently Relevant to Health Maintenance Insurance RESTRICTED [facility] Address: [address] [place] [address] Care Teams Supervisor Litharge Relationship Specialty [place] [address] [place] [phone] PCP - General Family Medicine 05/01/24 Additional Source Comments PLEASE NOTE: Replies to this message will not be received.[facility]
--- OUTSIDE RECORDS SUMMARY | 2025-03-19 20:42 | XMS_ITS ---
Author Organization [facility] Address [address] [place] [address] Care Team Providers Care Picking Tech Name Role Phone Uriel Pérez Primary Care Provider REASON FOR VISIT Lab result Medications Medication SIG (Take, Route, Frequency, Duration) Notes Start Date End Date Status Liothyronine Sodium 5 MCG 1 tablet on an empty stomach Oral Once a day for 30 days Active Vyvanse 30 MG Oral for 30 Days Not-Taking MiraLax 17 GM/SCOOP 1 scoop mixed with 8 ounces of fluid Orally Once a day for 30 days 1 box 11/16/2023 03/15/2024 Active Rizatriptan Benzoate 10 MG Oral for 30 Days Active QUEtiapine Fumarate 100 MG Oral for 15 Days Not-Taking Suboxone 2-0.5 MG Sublingual for 30 Days Active Adderall XR 30 MG Oral for 30 Days Active Auvelity 45-105 MG Oral for 15 Days Active Amphetamine-Dextroam phetamine 30 MG Oral for 30 Days Active Levothyroxine Sodium 100 MCG 1 tablet in the morning on an empty stomach Oral Once a day for 30 days Active Diclofenac Sodium 1 % 1 application to affected area Externally Four times a day for 30 days Apply 2 grams to affected area as needed. 09/17/2023 02/20/2024 Active Encounters Encounter Location Date Provider Diagnosis [facility] [address] [place] [address] 02/15/2024 Uriel Pérez Plan Of Treatment No Information Progress Notes * TAL WILLB:1975 (49 yo M)Acc No.[id number]:02/15/2024 Video Visit Patient: YUMIKO PETERSEN Provider: Hima Pérez NP :1975 A ge:48 Y S ex:Male Date:02/15/2024 Address:[facility] [place] [place], [id number] Subjective: * Chief Complaints: * 1 . [...] stomach Oral Once a day , Taking MiraLax 17 GM/SCOOP Powder 1 scoop mixed with 8 ounces of fluid Orally Once a day 1 box, stop date 03/15/2024, Taking Diclofenac Sodium 1 % Gel 1 application to affected area Externally Four times a day , stop date 02/20/2024, Notes to Pharmacist: Apply 2 grams to affected area as needed., Taking Levothyroxine Sodium 100 MCG Tablet 1 tablet in the morning on an empty stomach Oral Once a day , Not-Taking/PRN Vyvanse 30 MG Capsule Oral , Not-Taking/PRN QUEtiapine Fumarate 100 MG Tablet Oral Objective: * Vitals: Assessment: Plan: * Treatment: * Billing Information: * Visit Code: * Procedure Codes: * Electronic signature of Ricardo Pérez APRN on 03/19/2025 at 08:42 PM CDT Sign off status: Pending * Provider: Hima Pérez NP Date: 02/15/2024 Generated for Maryann joshi/Walt/Brenda on: 03/19/2025 08:42 PM CDT
--- OUTSIDE RECORDS SUMMARY | 2025-03-19 20:42 | XMS_ITS ---
Author Organization [facility] Address [address] [place] [address] Care Team Providers Care Chief Of Harbor Patrol Name Role Phone Uriel Pérez Primary Care Provider Encounters Encounter Location Date Provider Diagnosis [facility] [address] [place] [address] [place] [address] 01/07/2025 Uriel Pérez Plan Of Treatment No Information Progress Notes * TAL WILLB:1975 (49 yo M)Acc No.[id number]:01/07/2025 Patient: Janet JIMENEZ YUMIKO :1975 A ge:49 Y S ex:Male Address:[address] [place] [address] * * Date:
--- OUTSIDE RECORDS SUMMARY | 2025-03-19 20:42 | XMS_ITS | Patient Health Record ---
Author Organization [facility] Primary Address [address] [place] [address] Care Team Providers Care E Commerce Director Name Role Phone unknown, xxxxxxx Primary Care Provider Unavailab le ALLERGIES No Known Allergies REASON FOR REFERRAL No Information MEDICATIONS Medication SIG (Take, Route, Fr equency, Duration) Notes Start Date End Date Status Adderall Unknown CeleBREX Unknown Wellbutrin Unknown Viibryd Unknown buprenorphine Unknow n SOCIAL HISTORY Sex Assigned At : Social History Observation Description Sex Assigned At Unknown PROBLEMS Problem Type ICD Code Onset Dates Problem Status W/U Status Risk SNOMED Code Notes Problem Other intervertebral disc displacement, lumbar region (M51.26) Active confirmed Displacement of lumbar intervertebral disc without myelopathy (97672559) Problem Spondylosis without myelopathy or radiculopathy, cervical region (M47.812) Active confirmed Cervical spondylosis without myelopathy (082292018) Problem Spondylosis without myelopathy or radiculopathy, lumbar region (M47.816) Active confirmed Lumbosacral spondylosis without myelopathy (20210532) PLAN OF TREATMENT No Information Insurance Providers Payer Name Payer Address Payer Phone Subscriber Number Group Number Insured Name Patient Relationship to Insured Coverage Start Date Coverage End Date [place] [address] [address] [place] [address] [id number] [facility] Kale Paz Self - patient is the insured MEDICAL (GENERAL) HISTORY Medical History History ICD Code Anemia Arthritis Thyroid disorder Surgical History Surgery Date(Month/Year)
--- OUTSIDE RECORDS SUMMARY | 2025-03-19 20:42 | XMS_ITS | Clinical Summary ---
Author Organization [facility] Address [address] [place] [address] Care Team Providers Care Clinical Therapist Name Role Phone Mikal Angelo Primary Care Provid er Allergies No known active allergies Medications liothyronine sodium (CYTOMEL) 5 mcg oral Tablet Take 1 tablet by mouth on an empty stomach Once a day* 4 Active NARCAN 4 mg/actuation nasal [place], Non-Aerosol SPRAY 1 SQUIRT IN THE NOSTRILS [...] of recurrent major depressive d isorder 05/01/2024 Encounters Date Type Department Care Team Description 12/22/2024 Patient Message [facility] [address] [place], [place] [phone] Silva Bonilla, SPECIAL EDUCATION CASE MANAGER,WIRE COILER Subj: Mood follow up from Last 3 Months Immunizations Immunization Administration [...] or pharmacy? Patient declines to respond 05/01/2024 [facility] Utilities Answer Date Recorded In the [...] often do you attend chur ch or jewish services? 1 to 4 times per year 05/01/2024 Do you belong to any clubs o r organizations such as mosque groups, unions, fraternal or athletic groups, or [...] medical care, and heating? Somewhat hard 05/01/2024 [facility] [place] of Occupat ional Health - Occupational Stress [...] any time in the past 12 m [facility], were you homeless or living in a halfway (including now)? Patient declined 05/01/2024 Housing Stability [...] any time in the past 12 m [facility], were you homeless or living in a halfway (including now)? Patient declined 05/01/2024 In the [...] 06/11/2024 9:38 AM CDT Plan of Treatment Health Maintenance Due Date Last Done Comments Hepatitis B Vaccines (1 of 3 - 19+ 3-dose series) 1994 CT Colonography 2020 Colonoscopy 2020 Colorectal Cancer Screening 2020 Fecal Immunochemical DNA Marina t (FIT-DNA) 2020 Fecal Immunochemical Test (FIT) 2020 COVID-19 Vaccine (1 - 2023-2 5 season) 2024 Depression Screening 09/05/2024 06/05/2024 Influenza Vaccine (Season Ended) 2025 Varicella Zoster Sequential (1 of 2) 2025 Lipids Standard 05/01/2029 05/01/2024 DTaP/Tdap/Td Vaccines (2 - T d or Tdap) 04/16/2033 04/16/2023 Respiratory Syncytial Virus (RSV) Vaccine (1 - 1-dose 75+ series) 2050 HIV Screen Completed 05/01/2024 Hepatitis C Testing Completed 05/01/2024 HIB Vaccines Aged Out No longer eligi ble based on patient's age to complete this topic HPV Vaccines Aged Out No longer eligi ble based on patient's age to complete this topic Hepatitis A Vaccines Aged Out No long er eligible based on patient's age to complete this topic Meningococcal B Vaccines Aged Out No longer eligible based on patient's age to complete this topic Meningococcal Vaccines Aged Out No lo nger eligible based on patient's age to complete this topic Pneumococcal Vaccine (0-49 Years) Aged Out No longer eligible based on [...] HEPATITIS C AB (05/01/2024 2:53 PM CDT) HCV Ab Nonreactive Nonreactive 05/01/2024 7:59 PM CDT [facility] Comment:Interpretation: Anti bodies to HCV were not detected; does not exclude the possibility of exposure to HCV. Blood VENOUS BLOOD / Unknown Venipuncture / Unknown 05/01/2024 2:53 PM CDT 05/01/2024 2:53 PM CDT us Mikal Santamaria Koryabouni DO LAB SEROLOGY ORDERAB LES Final Result [facility] [address] [place] [address], [place] [phone] * HIV-1 AND HIV-2 AG AND AB (05/01/2024 2:53 PM CDT) [facility] HIV 1/2 Ab/Ag Nonreactive Nonreactive 7:56 PM CDT [facility] Blood VENOUS BLOOD / Unknown Venipuncture / Unknown 05/01/2024 2:53 PM CDT 05/01/2024 2:53 PM CDT us Mikal Rosalio Angelo DO LAB SEROLOGY ORDERAB LES Final Result [facility] [address] [place] [address], [place] [phone] * LIPID PANEL (05/01/2024 2:53 PM CDT) [facility] Cholesterol 170 <200 mg/dL 05/01/2024 7:43 PM CDT [facility] Triglycerides 58 30 - 150 mg/dL 05/01/2024 7:43 PM CDT [facility] Cholesterol, LDL (Calculated) 101 0 - 159 mg/dL 05/01/2024 7:43 PM CDT [facility] Cholesterol, HDL 57 >40 mg/dL 05/01/20 24 7:43 PM CDT [facility] Cholesterol, vLDL 12 mg/dL 024 7:43 PM CDT [facility] Fasting Status N/A 05/01/2024 7:43 PM CDT [facility] Blood VENOUS BLOOD / Unknown Venipuncture / Unknown 05/01/2024 2:53 PM CDT 05/01/2024 2:53 PM CDT Mikal Angelo DO LAB CHEMISTRY ORDERA BLES Final Result [facility] [address] [place] [address], [place] [phone] from Last 3 Months or Most Recently Relevant to Health Maintenance Insurance [id number] [place] [id number] RESTRICTED [employer] Care Teams Clinical Therapist Relationship Specialty [place] [address] [place] [phone] PCP - General Family Medicine 05/01/24 Additional Source Comments PLEASE NOTE: Replies to this message will not be received.[facility]
== END 2025-03-19 15:50 | disposition home or self-care (01) ==
PROVIDERS: Emergency Provider Emergency Medicine Emergency Medical Services; PCP Nurse Practitioner Psychiatric/Mental Health
DX: F32.A Depression, unspecified (principal); F41.8 Other specified anxiety disorders; Z79.899 Other long term (current) drug therapy
CPT/HCPCS: 99283; 99284